=== PATIENT | male | born 1950 | race Caucasian/White ===

== ENCOUNTER → 2023-07-24 08:03 | Outpatient (REF) | payer MEDICARE, OTHER, SELFPAY | LOC: HWRCS 08:03 | PROVIDERS: ATTENDING PHYSICIAN Family Medicine | DX: I35.1 Nonrheumatic aortic (valve) insufficiency (principal) | CPT/HCPCS: 93306 ==

== ENCOUNTER → 2024-04-12 13:00 | Outpatient (REF) | payer MEDICARE, OTHER, SELFPAY | LOC: HWRAD 13:00 | PROVIDERS: ATTENDING PHYSICIAN Family Medicine | DX: R10.2 Pelvic and perineal pain (principal) | CPT/HCPCS: 74177; Q9967 ==

== ENCOUNTER 2025-01-09 04:42 | Inpatient (IN) | payer MEDICARE, OTHER, SELFPAY ==
[2025-01-08 22:20] VITALS: BP 133/80
[2025-01-08 22:42] LABS: Hematocrit 44.9 % (39.0-52.0); Hemoglobin 15.6 g/dL (13.0-18.0); Mean Corp Hgb Conc. 34.7 g/dL (33.0-37.0); Mean Corpuscular Volume 86.7 fL (80.0-94.0); Nucleated Red Blood Cells % 0 % (-); Platelet Count 225 10^3/uL (130-400); Red Cell Dist. Width 12.7 % (11.5-14.5)
[2025-01-08 22:51] LABS: INR 0.97; PT 13.4 Sec (11.4-14.6)
[2025-01-08 22:53] LABS: APTT 26.6 Sec (23.4-35.0)
[2025-01-08 22:58] LABS: ALT (SGPT) 21 U/L (0-50); AST (SGOT) 20 U/L (17-59); Albumin 4.4 g/dl (3.5-5.0); Alkaline Phosphatase 55 U/L (38-126); Blood Urea Nitrogen 20 mg/dl (9-20); Calcium 9.5 mg/dl (8.4-10.2); Carbon Dioxide 26 mmol/L (22-30); Chloride 107 mmol/L (98-107); Glucose 151 mg/dl (70-99); Potassium 4.0 mmol/L (3.5-5.1); Sodium 140 mmol/L (135-145); Total Protein 6.9 g/dl (6.3-8.2); eGFR 56.93
[2025-01-09] VITALS (14 sets, daily range): BP systolic 98–139; BP diastolic 57–91; PULSE 60–77; BMI 26.6; BMI 25.8
--- NOTE | 2025-01-09 01:42 | ED.GENMED ---
History of Present Illness
General
Chief Complaint: Rectal Bleeding
Source: patient
Exam Limitations: none
Time Seen by Provider: 01/09/25 01:14
Nursing documentation reviewed up to this point in time: agreed with
History of Present Illness
History of Present Illness:
74-year-old male presents with multiple episodes of bloody loose stools had [place] food with lewis this afternoon 4 hours later developed symptoms of nausea loose stools with blood had a colonoscopy 2 years ago said he had a polyp but no
diverticulosis takes aspirin no other blood thinners no fevers no abdominal pain no one else has been sick
Past History
Past History
ED Past Medical History: GERD, Hypercholesterolemia and Other (Sleep apnea uses CPAP)
ED Past Surgical History: Orthopedic (Left foot, Left wrist, Back surgery) and Tonsilectomy
Social History
Tobacco: Non-smoker
Alcohol: Daily (Wine or beer 1)
Drug: None
Personal:
Living: with family
Employment: Retired
Review of Systems
Review of Systems
All Other Systems: Not applicable
Constitutional: Reports fatigue; Denies fever
Respiratory: Reports no symptoms
ABD/GI: Reports nausea, diarrhea and bloody stools
: Reports no symptoms
Musculoskeletal: Reports no symptoms
Skin: Reports no symptoms
Neurological: Reports no symptoms
Endocrine: Reports no symptoms
Phy Exam
Physical Exam
Physical Exam:
Physical Exam
General: no apparent distress, not acutely ill
Neck: No jaundice
Heart: s1/s2 regular rate and rhythm, no murmur. equal radial pulses.
Lungs: no acute respiratory distress. clear bilaterally
Abdomen: Soft nontender rectal no masses no stool
Neuro: alert and oriented. no focal neurological deficits
Skin: no rash
Psychiatric: well kept. interactive and cooperative
Extremities: no edema.
Course
Orders/Labs/Results
Orders:
Orders
01/08/25 22:23
EKG [Electrocardiogram (*1)] Urgent
Reason for Study: Vertigo / Dizzy
01/08/25 22:24
EKG- Treatment ONCE
01/08/25 22:36
Type+Screen Urgent
Complete Blood Count/With Diff Urgent
Comprehensive Metabolic Panel Urgent
PTT Urgent
Prothrombin Time Urgent
01/08/25 22:51
ABO2 Urgent
BBK Wristband Number:
Associate notified that ABO2 has been ordered: [id number]
Date: 01/08/25
Time: 22:51
[place] Operator ID: [id number]
01/09/25 01:36
CT Abd/pelvis Angio W/wo Iv Urgent
Comment:
Reason For Exam: gi bleeding
IV Insert/Care/Rem.- Treatment PRN
Stool Culture Urgent
JAY Source: Feces/Stool
Specimen Description:
01/09/25 01:37
0.9% Sodium Chloride 500 ml [Nss] 500 ml IV BOLUS
Abnormal Lab Results
01/08/25
22:36
Absolute Monos (auto) 0.7 H 10^3/uL
(0.1-0.6)
Monocytes % 10.1 H %
(1.7-9.3)
Glucose 151 H mg/dl
(70-99)
01/08/25 22:36
01/08/25 22:36
Vital Signs
Initial and Last Documented VS:
Initial Vital Signs
Temp Pulse Resp BP Pulse Ox
98.1 F 79 16 133/80 97
01/08/25 22:20 01/08/25 22:20 01/08/25 22:20 01/08/25 22:20 01/08/25 22:20
Last Documented Vital Signs
Temp Pulse Resp BP Pulse Ox
98.1 F 69 17 139/91 95
01/08/25 22:20 01/09/25 00:45 01/09/25 00:45 01/09/25 00:15 01/09/25 01:44
MDM/Problems Addressed
Differential Diagnosis Includes:
Infectious colitis, ischemic colitis, tics, mass
MDM/Problems Addressed:
Rectal bleeding
*Radiology
Radiology exam reviewed: radiology read reviewed
*Pulse Oximetry
SaO2: 95
Oxygen Mode of Delivery: Room air
Patient hypoxic: no
*Critical Care Note
Total Time (30-74mins, 75-104mins- exclusive of procedures): Not Applicable
Update Note
Update Note:
315 update patient continues to have bloody stools will check stool studies,
ED Attending Note
-
Portions of this chart may have been created with voice recognition software.� Occasional wrong word or��sound alike� substitutions may have occurred due to the inherent limitations of voice recognition software.
Discharge Plan
Departure
Patient Disposition: Admit
Date of Disposition: 01/09/25
Time of Disposition: 03:14
Admit to: Med/Surg
Presentation/result/management discussed w/ accepting MD/DO: Hospitalist
Condition: Fair
Covid-19: Not Applicable
Discharge Problem:
Bloody stool
Prescriptions:
No Action
multivitamin [Daily Multiple] 1 EACH tablet
1 ea PO DAILY
aspirin 81 MG tablet,delayed release (DR/EC)
81 mg PO DAILY
rosuvastatin 10 MG tablet
10 mg PO DAILY
Calcium
600 mg PO DAILY
Vitamin C:
1 tab PO DAILY
meloxicam 15 mg Tablet
15 mg PO DAILY
tamsulosin 0.4 mg Capsule
0.4 mg PO DAILY
pantoprazole 40 mg Tablet,Delayed Release (Dr/Ec)
20 mg PO DAILY
gabapentin 300 mg Capsule
300 mg PO BID
magnesium 500 mg Tablet
500 mg PO DAILY
fluticasone propionate [Flonase] 50 mcg/actuation [place],Suspension
1 spray INTRANASAL 1XD
ezetimibe [Zetia] 10 mg Tablet
10 mg PO DAILY
Referrals:
Chris Henson DO [Family Provider, Family Practice]
Interventions
Interventions:
*Risk Screen - Suicide Last Done: 01/08/25 22:20
*General Assessment Last Done: 01/09/25 00:12
*Neglect/Abuse Screening Last Done: 01/08/25 22:20
*ED- Fall Risk Assessment Last Done: 01/08/25 22:20
*ED COVID-19 Vaccine History Last Done: 01/09/25 00:12
ZG-Qsbhwa-Yczdmgngdu Assessment Last Done: 01/09/25 00:12
ED- Cardiac Assessment Last Done: 01/09/25 00:12
ED- Pulmonary Assessment Last Done: 01/09/25 00:12
Discharge Date and Time
Print Language: SLOVAK
[2025-01-09] MEDS: NSS 500 IV (02:03)
--- NOTE | 2025-01-09 03:15 | HPS.HSE ---
Family Physician
-
Family Physician: Chris Henson
Chief Complaint
-
Rectal bleeding
History of Present Illness
This is a 74-year-old male with past medical history significant for GERD, hyperlipidemia, MARISOL on CPAP, history of chronic back pain on meloxicam and a prior DVT who presents to the emergency department with bloody stools.
He had multiple episodes of bloody loose stools after having [place] food with lewis this afternoon. 4 hours later developed symptoms of nausea loose stools with blood. Takes aspirin 81, meloxicam. Denies any other thinners. Last had a colonoscopy
2 years ago with a polyp but no diverticulosis.
Denies fevers, vomiting or abdominal pain. No recent travesl and no sick contacts.
In the emergency department patient was afebrile, blood pressures 130/90 with a pulse rate of 69 satting 98% on room air. INR was 0.9, ECG showed normal sinus rhythm at rate of 71. Hemoglobin was 15.6 with a normal platelet count. Electrolytes
were all within the normal range. BUN was 20 and creatinine 1.3 with a glucose of 151. CT abd. pelvis showing extensive diverticulosis without diverticulitis. No other abnormalities noted.
Medical History
Past Medical History
Past Medical History: Reports CAD (non-obstructive), GERD, Hypercholesterolemia and Other (BPH, h/o DVT, sleep apnea )
Past Surgical History: Reports Orthopedic
Social History
Tobacco: Non-smoker
Alcohol: None
Family History
Family History: Not pertinent
Allergies / Home Medications
Allergies reflects when Allergies were last updated in [employer].
Home Medications with original date entered in [employer]
Allergy/Medication List:
Allergies
Allergy/AdvReac Type Severity Reaction Status Date / Time
No Known Allergies Allergy Verified 01/08/25 22:16
Home Medications
Calcium 600 mg PO DAILY 08/26/13
Vitamin C: 1 tab PO DAILY 08/26/13
aspirin 81 mg tablet,delayed release 81 mg PO DAILY 08/26/13
multivitamin (Daily Multiple tablet) 1 ea PO DAILY 08/26/13
rosuvastatin 10 mg tablet 10 mg PO DAILY 08/26/13
gabapentin 300 mg capsule 300 mg PO BID 08/07/22
meloxicam 15 mg tablet 15 mg PO DAILY 08/07/22
pantoprazole 40 mg tablet,delayed release 20 mg PO DAILY 08/07/22
tamsulosin 0.4 mg capsule 0.4 mg PO DAILY 08/07/22
ezetimibe 10 mg tablet (Zetia) 10 mg PO DAILY 01/09/25
fluticasone propionate 50 mcg/actuation nasal spray,suspension 1 spray intranasal 1XD 01/09/25
magnesium 500 mg tablet 500 mg PO DAILY 01/09/25
Review of Systems
-
Constitutional: Reports No Symptoms
EENT: Reports No Symptoms
Respiratory: Reports No Symptoms
Cardiac: Reports No Symptoms
Abdomen/GI: Reports Bloody Stools
: Reports No Symptoms
Musculoskeletal: Reports No Symptoms
Skin: Reports No Symptoms
Neurological: Reports No Symptoms
Endocrine: Reports No Symptoms
Hematologic/Lymphatic: Reports No Symptoms
Psych: Reports No Symptoms
Physical Exam
Vital Signs
Vital Signs
Temp Pulse Resp BP Pulse Ox
98.1 F 69 17 139/91 95
01/08/25 22:20 01/09/25 00:45 01/09/25 00:45 01/09/25 00:15 01/09/25 01:44
Physical Exam
General: Well Developed, Well Nourished and No Apparent Distress
HEENT: NormoCephalic, Moist mucous membranes and Atraumatic
Respiratory: Clear
Cardiac: S1/S2 and Regular Rhythm; No Murmur or Rub
GI: Soft, Non Tender, Non Distended and Normal Bowel Sounds; No Organomegaly
Rectal: Red and Maroon Stools
Genito-urinary: Deferred by me
Musculoskeletal: No Clubbing, No Cyanosis and No Edema
Skin: No Rash
Neuro: AO x 3 and Nonfocal/grossly intact
Hematologic/Lymphatic: No Lymphadenopathy
Psych: Calm
Laboratory Results
-
01/08/25 22:36
01/08/25 22:36
Laboratory Results
PT 13.4 Sec (11.4-14.6) 01/08/25 22:36
INR 0.97 01/08/25 22:36
APTT 26.6 Sec (23.4-35.0) 01/08/25 22:36
Total Bilirubin 0.7 mg/dl (0.2-1.3) 01/08/25 22:36
AST 20 U/L (17-59) 01/08/25 22:36
ALT 21 U/L (0-50) 01/08/25 22:36
Alkaline Phosphatase 55 U/L (38-126) 01/08/25 22:36
Data Reviewed
-
CT Scan: Report Reviewed by me
Medical Tests (Nuc Med, Echo, EKG etc): Image Personally Visualized and interpreted
Lab Data: Labs Reviewed by me
Old Records: Reviewed
Impression/Plan
-
IMPRESSION:
This is a 74-year-old with past medical history of hyperlipidemia, GERD, BPH who is on baby aspirin and daily meloxicam presents to the emergency department with acute episode of rectal bleeding having had multiple bright red blood per rectum now
having more maroon-colored stool with clots. Patient had no abdominal pain. He had otherwise had no diarrhea fevers or chills. CT scan shows extensive diverticulosis without diverticulitis. No history of hemorrhoids. H&H is stable and he is
remains hemodynamically stable.
PLAN:
Rectal bleeding -suspect from diverticular source and no active bleeding seen on current CT GI bleed study
-Admit to telemetry
-N.p.o.
-Holding meloxicam and aspirin
-Type and screen, consent
-H&H every 6 to 8 hours
-Orthostatic vital signs
-PPI IV for now
-GI consultation
DVT prophylaxis�SCDs
CODE STATUS�full code
[2025-01-09] MEDS: D5/0.45%NACL 1000 IV ×2 (05:44→22:42)
[2025-01-09 06:15] LABS: Hematocrit 43.0 % (39.0-52.0); Hemoglobin 14.8 g/dL (13.0-18.0); Mean Corp Hgb Conc. 34.4 g/dL (33.0-37.0); Mean Corpuscular Volume 87.9 fL (80.0-94.0); Platelet Count 247 10^3/uL (130-400); Red Cell Dist. Width 12.7 % (11.5-14.5)
[2025-01-09 06:38] LABS: Blood Urea Nitrogen 20 mg/dl (9-20); Calcium 9.2 mg/dl (8.4-10.2); Carbon Dioxide 24 mmol/L (22-30); Chloride 106 mmol/L (98-107); Estimated Creatinine Clearance 55 ml/min; Glucose 112 mg/dl (70-99); Potassium 4.4 mmol/L (3.5-5.1); Sodium 138 mmol/L (135-145); eGFR > 60.00
--- NOTE | 2025-01-09 07:12 | CON.GI ---
Addendum entered and electronically signed by Debbie Haque MD 01/09/25 15:51:
I saw and examined the patient.
The QUALITY HEAD or PA's note was reviewed and I agree with the note.
Comment: 74-year-old male with history of hypertension, high cholesterol, chronic back pain on meloxicam presenting with multiple episodes of bloody bowel movements without any associated abdominal pain. He was doing well until dinner and had
[place] food around 4 PM, around 9 PM had an urge to have a bowel movement and felt like he was going to have diarrhea. He had multiple episodes of bloody bowel movements through the night, 6 or 7, last episode was 9:45 AM this morning and more
dark blood than before. No episodes since. No previous similar episode. No abdominal pain, nausea or vomiting. He takes pantoprazole 20 mg for history of GERD, well-controlled on that. No trouble swallowing. Normal bowel pattern is 2-3 formed
stool a day without any pushing or straining, good evacuation. Takes meloxicam and baby aspirin. Colonoscopy about a year ago with Dr. Lynne at [facility], 3 colon polyps removed as per patient and repeat suggested in 3 years. He has been having
colonoscopy since age 38 for family history of colon cancer in his mother. Never had polyps prior to the last year. No chest pain, dizziness, lightheadedness.
No significant drop in hemoglobin, no anemia. CT angiogram negative.
- Bloody bowel movements without any abdominal pain, CT angio negative
Most likely diverticular bleed which seems to be resolving at this time.
No further bleeding in the last 8 hours. Currently tolerating clear liquid diet.
If no bleeding overnight, okay to advance to full liquid diet tomorrow followed by low residue diet.
If there is bleeding, consider inpatient colonoscopy. If not, can follow-up with Dr. Lynne for outpatient colonoscopy in the next couple of months.
Avoid NSAIDs. Monitor bowel movements.
Will follow for now.
Original Note:
Consultation
-
Date/Time Consultation Requested: 01/09/25 0450
Date/Time Consultation Performed: 01/09/25 0800
Requesting Provider: Sergey Archibald MD
Performing Provider: MARKIE Villegas, Sonia Roldan DO
Reason for Consultation: rectal bleeding
Medical History
Chief Complaint / HPI
Chief Complaint: rectal bleeding
History of Present Illness:
Pt is a 74yo with hx CAD on daily ASA 81mg , GERD on daily Protonix 20mg,diverticulosis, colon polyp, hypercholesteremia, BPH, sleep apnea, cervical disc disease, VT, neuropathy, mild AI, MR, prior ortho surgery and chronic back pain on Meloxicam
with onset of bloody stools. In ER noted with hbg 15.[address] angio pending final report but preliminary no acute abnormality no active GI bleed-- extensive diverticulosis, no bowel obstruction, cholelithiasis. In review with patient
he admits to regular bowel function. He began 01/08 with onset of large volume of red stools. He has had about 6 episodes of bleeding in first 12 hours. Over time less volume and slightly darker color. Pt denies dizziness, or syncope. Hx EGD
recall normal and colonoscopy about 2 years ago with hx polyps,. Mother with family hx colon cancer. He otherwise admits to stable GERD on PPI and denies dysphagia, nausea, vomiting,abdominal pain, diarrhea, constipation or rectal bleeding in
past.
Past Medical History
Past Medical History: CAD, GERD, Hypercholesterolemia, Valvular Disease (mild MR, mild AI per echo 2023) and Other (BPH, sleep apnea, cervical disc disease, back pain, DVT, neuropathy)
Past Surgical History: Orthopedic (lami, wrist surgery, shoulder surgery) and Tonsilectomy
Social History
Tobacco: Non-Smoker
Alcohol: Occasional
Drug: None
Personal:
Living: With Family
Employment: Retired
Family History
Family History: Other (mother with colon Ca in 70's )
Allergies / Home Medications
Allergy/AdvReac Type Severity Reaction Status Date / Time
No Known Allergies Allergy Verified 01/09/25 04:55
�Medication �Instructions �Recorded
Calcium 600 mg PO DAILY 08/26/13
Vitamin C: 1 tab PO DAILY 08/26/13
aspirin 81 mg tablet,delayed 81 mg PO DAILY 08/26/13
release
multivitamin (Daily Multiple 1 ea PO DAILY 08/26/13
tablet)
rosuvastatin 10 mg tablet 10 mg PO DAILY 08/26/13
gabapentin 300 mg capsule 300 mg PO BID 08/07/22
meloxicam 15 mg tablet 15 mg PO DAILY 08/07/22
pantoprazole 40 mg tablet,delayed 20 mg PO DAILY 08/07/22
release
tamsulosin 0.4 mg capsule 0.4 mg PO DAILY 08/07/22
ezetimibe 10 mg tablet (Zetia) 10 mg PO DAILY 01/09/25
fluticasone propionate 50 1 spray intranasal 1XD 01/09/25
mcg/actuation nasal
spray,suspension
magnesium 500 mg tablet 500 mg PO DAILY 01/09/25
Review of Systems
-
History Source: Patient
Constitutional: Reports No Symptoms
EENT: Reports No Symptoms
Cardiac: Reports No Symptoms
Abdomen/GI: Reports Bloody Stools
: Reports No Symptoms
Musculoskeletal: Reports Joint Pain (chronic NSAID use )
Skin: Reports No Symptoms
Neurological: Reports No Symptoms
Endocrine: Reports No Symptoms
Hematologic/Lymphatic: Reports Bleeding
Vital Signs
Temp Pulse Resp BP Pulse Ox
98.1 F 61 19 121/73 94
01/08/25 22:20 01/09/25 06:15 01/09/25 06:15 01/09/25 06:00 01/09/25 06:15
Physical Exam
Exam
General: Well Developed and No Apparent Distress
HEENT: Normocephalic and Anicteric
Respiratory: Clear
Cardiac: Regular Rhythm
GI: Soft, Non Tender and Non Distended
Rectal: Other (bloody red per nursing staff )
Musculoskeletal: No Clubbing and No Cyanosis
Skin: Warm and Dry
Neuro: Awake, Alert and AO x 3
Psych: Calm
Results
WBC 7.4 10^3/uL (4.8-10.8) 01/09/25 05:48
Hgb 14.8 g/dL (13.0-18.0) 01/09/25 05:48
Hct 43.0 % (39.0-52.0) 01/09/25 05:48
MCV 87.9 fL (80.0-94.0) 01/09/25 05:48
Plt Count 247 10^3/uL (130-400) 01/09/25 05:48
Absolute Neuts (auto) 4.0 10^3/uL (1.4-6.5) 01/08/25 22:36
PT 13.4 Sec (11.4-14.6) 01/08/25 22:36
INR 0.97 01/08/25 22:36
APTT 26.6 Sec (23.4-35.0) 01/08/25 22:36
Sodium 138 mmol/L (135-145) 01/09/25 05:48
Potassium 4.4 mmol/L (3.5-5.1) 01/09/25 05:48
Chloride 106 mmol/L (98-107) 01/09/25 05:48
Carbon Dioxide 24 mmol/L (22-30) 01/09/25 05:48
BUN 20 mg/dl (9-20) 01/09/25 05:48
Creatinine 1.1 mg/dL (0.7-1.3) 01/09/25 05:48
Calcium 9.2 mg/dl (8.4-10.2) 01/09/25 05:48
Total Bilirubin 0.7 mg/dl (0.2-1.3) 01/08/25 22:36
AST 20 U/L (17-59) 01/08/25 22:36
ALT 21 U/L (0-50) 01/08/25 22:36
Alkaline Phosphatase 55 U/L (38-126) 01/08/25 22:36
Diagnostic Image Results:
01/09/24 CT angio pending-- preliminary no acute abnormality no activee GI bleed-- extensive diverticulosis, no bowel obstruction, cholelithiasis
Prior GI Procedures:
EGD: last 2 years ago recall stable [facility]
Colonoscopy: + polyps 2 years ago [facility]
Assessment / Plan
-
Pt is a 74yo with hx CAD on daily ASA 81mg , GERD on daily Protonix 20mg,diverticulosis, colon polyp, hypercholesteremia, BPH, sleep apnea, cervical disc disease, VT, neuropathy, mild AI, MR, prior ortho surgery and chronic back pain on Meloxicam
with onset of bloody stools. In ER noted with hbg 15.6 with normal BUN. In review with patient he admits to regular bowel function. He began 01/08 with onset of large volume of red stools. He has had about 6 episodes of bleeding in first 12
hours. Over time less volume and slightly darker color. Pt denies dizziness, or syncope. Hx EGD recall normal and colonoscopy about 2 years ago with hx polyps,. Mother with family hx colon cancer.
CT angio pending-- preliminary no acute abnormality no activee GI bleed-- extensive diverticulosis, no bowel obstruction, cholelithiasis
-painless rectal bleeding with bright red blood per rectum
-extensive diverticulosis
-chronic back pain on Meloxicam
-CAD on daily ASA 81mg
-GERD on chronic PPI
other med problems:
-hypercholesteremia
-BPH
-sleep apnea
- cervical disc disease
- DVT
-neuropathy
- mild AI, MR
-prior ortho surgery
-hx colon polyps
-cholelithiasis
-family hx colon Ca
PLAN:
etiology of bleeding likely diverticular bleeding -- less likely upper source with normal BUN and no dizziness but has been on Meloxicam daily with PPI prior to admission only one episode of mild hypotension in ER
trend hbg and stool pattern
CTA initial neg await final reading
if increased bleeding consider repeat CTA then angio if + vs proceed with colonoscopy
reviewed with patient if bleeding continues to improve hold intervention and continued observation
if no colonoscopy completed during admission then OP follow up with known GI for colonoscopy 6-8 weeks
ok for sips clears - advance as tolerated if bleeding improves to low residue
discussed high fiber diet in 3-4 weeks after bleeding improved
all questions answered
-
-
Thank you for consultation and allowing me to participate in the patient's care. Please call the nutrition aide GI physician during the after hours with any questions or concerns.
--- NOTE | 2025-01-09 08:24 | W.PN.HOSP.TC ---
Today's Communication/Plan
-
see A/P
Assessment / Plan
Assessment / Plan
HPI: 74-year-old M with past medical history of hyperlipidemia, GERD, BPH, MARISOL on CPAP, history of chronic back pain on meloxicam, on baby aspirin; p/w rectal bleeding and multiple bright red blood per rectum with clots. Patient denies to abdominal
pain.
His CT AP showed extensive diverticulosis without diverticulitis. No history of hemorrhoids. H&H is stable and he is remains hemodynamically stable.
A/P:
# GIB/Rectal bleeding, suspect from diverticular source
no active bleeding seen on CT AP, follow formal report
NPO with IVF for now until lifted by GI
GI CS
Holding [employer] meloxicam and aspirin
follow Hgb, so far stable with a small drop which could be explained by hemodilution
PPI IV BID for now
Other chronic medical conditions:
# hyperlipidemia
# GERD
# BPH
# MARISOL on CPAP
# history of chronic back pain on meloxicam
DVT prophylaxis�SCDs
CODE STATUS�full code
Anticipated Discharge: 24 - 48 hours
Subjective/Interval History
-
Date of Service: January 09, 2025
Objective Data
-
Labs:
Laboratory Results
01/08/25 01/09/25 01/09/25
22:36 05:48 14:00
WBC 6.6 7.4
Hgb 15.6 14.8 Pending
Hct 44.9 43.0 Pending
Plt Count 225 247
PT 13.4
INR 0.97
APTT 26.6
Sodium 140 138
Potassium 4.0 4.4
Chloride 107 106
Carbon Dioxide 26 24
BUN 20 20
Creatinine 1.3 1.1
Glucose 151 H 112 H
Calcium 9.5 9.2
Total Bilirubin 0.7
AST 20
ALT 21
Alkaline Phosphatase 55
Vital Signs:
Vital Signs
Temp Pulse Resp BP Pulse Ox
36.6 C 72 16 131/79 98
01/09/25 07:30 01/09/25 06:58 01/09/25 07:30 01/09/25 07:25 01/09/25 07:30
Review of Systems
-
History Source: Patient
Abdomen/GI: Reports Bloody Stools and Black Stools; Denies Abdominal Pain
Physical Exam
-
General: Well Developed, Well Nourished, No Apparent Distress, Comfortable and Conversant; Negative Respiratory Distress
HEENT: Normocephalic, Atraumatic, Nose Appears Normal and Ears Appear Normal; Negative Oxygen
Respiratory: Clear to Auscultation and Non Labored Respirations; Negative Accessory Resp Muscle Use
Cardiac: Regular Rhythm and S1/S2
GI: Soft, Nontender, Nondistended and Normal Bowel Sounds
Skin: Warm and Dry
Neuro: Awake, Alert, Oriented and AO x 3
Psych: Calm and Intact Judgement/Insight
Data Reviewed
-
Labs: Labs Reviewed by me
[2025-01-09] MEDS: FLOMAX 0.4 MG PO (08:40)
[2025-01-09] MEDS: NEURONTIN 300 MG PO ×2 (08:40→20:37)
[2025-01-09] MEDS: NSS (PRESERVATIVE FREE) 10 ML IV ×2 (08:40→20:38)
[2025-01-09] MEDS: PROTONIX IV 40 MG IV ×2 (08:40→20:38)
[2025-01-09] MEDS: CRESTOR 10 MG PO (08:43)
[2025-01-09] MEDS: ZETIA 10 MG PO (08:43)
--- NOTE | 2025-01-09 10:28 | CM ---
Patient seen at bedside in ED. Patient states that he lives with his in a 2 story home with an elevator. Patient has a CPAP machine at home that he uses. Patient stated that he uses the [facility] [address] in [place] and his PCP is Dr. Henson.
Patient plan is home with no needs vs home with VN. CM will continue to follow for discharge planning needs.
Plan; home with VN vs home with no needs. pending medical treatment plan
[2025-01-09 14:01] LABS: Hematocrit 43.5 % (39.0-52.0); Hemoglobin 14.8 g/dL (13.0-18.0)
[2025-01-10 03:00] VITALS: BP 119/54
--- NOTE | 2025-01-10 05:36 | W.PN.GI.CBS2 ---
Today's Communication / Plan
-
No further signs of recurrent bloody stools and Hgb remains stable, further supportive of likely resolved diverticular bleed. Recommend colonoscopy as outpatient with his primary GI. May ADAT. See rest as outlined below. GI will sign-off, please
recontact with any questions or concerns.
Assessment / Plan
-
#Hematochezia
This is a 74-year-old male with history of hypertension, high cholesterol, chronic back pain on meloxicam presenting with multiple episodes of bloody bowel movements without any associated abdominal pain. He was doing well until dinner and had
[place] food around 4 PM, around 9 PM had an urge to have a bowel movement and felt like he was going to have diarrhea. He had multiple episodes of bloody bowel movements through the night, 6 or 7, last episode was 9:45 AM this morning and more
dark blood than before. No episodes since. No previous similar episode. No abdominal pain, nausea or vomiting. He takes pantoprazole 20 mg for history of GERD, well-controlled on that. No trouble swallowing. Normal bowel pattern is 2-3 formed
stool a day without any pushing or straining, good evacuation. Takes meloxicam and baby aspirin. Colonoscopy about a year ago with Dr. Lynne at [facility], 3 colon polyps removed as per patient and repeat suggested in 3 years. He has been having
colonoscopy since age 38 for family history of colon cancer in his mother. Never had polyps prior to the last year. No chest pain, dizziness, lightheadedness.
No significant drop in hemoglobin, no anemia. CT angiogram negative.
-painless rectal bleeding with bright red blood per rectum
-extensive diverticulosis
-chronic back pain on Meloxicam
-CAD on daily ASA 81mg
-GERD on chronic PPI
Recommendations:
- No further bloody stools over past 24 hrs, further supportive of likely resolved diverticular bleed
- May ADAT to full liquids this AM and low-fiber, low-residue diet later today
- Trend Hgb with serial CBC
- No plans for an inpatient colonoscopy at this time, recommend close outpatient follow-up with his primary GI (Dr. Lynne and f/w Dr. Stapleton) with [facility] ([facility]) in the next few months
- Advised strict avoidance of NSAIDs
- Rest of care per primary team
Discussed with primary internal medicine team. GI will sign-off, please call with any questions or concerns.
Subjective
Subjective
Date of Service: January 10, 2025
- No acute events overnight, Hgb remains stable 15.6 -> 14.8 -> 14.8
Feeling well, resting comfortably in chair. Denies any further bloody bowel movements since yesterday AM. No abdominal pain or discomfort.
Objective
Data Reviewed
Laboratory Data:
Laboratory Results
PT 13.4 Sec (11.4-14.6) 01/08/25 22:36
INR 0.97 01/08/25 22:36
APTT 26.6 Sec (23.4-35.0) 01/08/25 22:36
Total Bilirubin 0.7 mg/dl (0.2-1.3) 01/08/25 22:36
AST 20 U/L (17-59) 01/08/25 22:36
ALT 21 U/L (0-50) 01/08/25 22:36
Alkaline Phosphatase 55 U/L (38-126) 01/08/25 22:36
Vital Signs and I&O:
Vital Signs
Temp Pulse Resp BP Pulse Ox
97.8 F 61 14 119/54 94
01/10/25 03:00 01/10/25 03:00 01/10/25 03:00 01/10/25 03:00 01/10/25 03:00
I&O
01/08/25 01/09/25 01/10/25
06:59 06:59 06:59
Intake Total 960 / 960
Balance 960 / 960
Physical Exam
Physical Exam
HEENT: Anicteric and Moist mucous membranes
Pulmonary: Other (Normal WOB on room air)
GI: Soft, Non Distended and Non Tender
Extremities: No Edema
Neuro: Non Focal
[2025-01-10 06:50] LABS: Hematocrit 40.0 % (39.0-52.0); Hemoglobin 13.7 g/dL (13.0-18.0); Mean Corp Hgb Conc. 34.3 g/dL (33.0-37.0); Mean Corpuscular Volume 88.1 fL (80.0-94.0); Platelet Count 206 10^3/uL (130-400); Red Cell Dist. Width 12.8 % (11.5-14.5)
[2025-01-10 07:19] LABS: Blood Urea Nitrogen 12 mg/dl (9-20); Calcium 8.7 mg/dl (8.4-10.2); Carbon Dioxide 25 mmol/L (22-30); Chloride 106 mmol/L (98-107); Estimated Creatinine Clearance 76 ml/min; Glucose 119 mg/dl (70-99); Magnesium 2.0 mg/dl (1.6-2.3); Potassium 4.2 mmol/L (3.5-5.1); Sodium 136 mmol/L (135-145); eGFR > 60.00
[2025-01-10 07:30] VITALS: BP 125/66
[2025-01-10] MEDS: CRESTOR 10 MG PO (08:08)
[2025-01-10] MEDS: NSS (PRESERVATIVE FREE) 10 ML IV (08:08)
[2025-01-10] MEDS: NEURONTIN 300 MG PO (08:08)
[2025-01-10] MEDS: ZETIA 10 MG PO (08:08)
[2025-01-10] MEDS: PROTONIX IV 40 MG IV (08:09)
[2025-01-10] MEDS: FLOMAX 0.4 MG PO (08:18)
[2025-01-10 11:50] VITALS: BP 123/77
--- NOTE | 2025-01-10 12:10 | CM ---
Addendum entered by Leeanne Frost 01/10/25 13:41:
Patient discharge today
IMM explained & signed. In chart
PLAN: Home, no needs
will transport
Original Note:
Patient seen at bedside with and daughter
discussed VN-does not feel he needs
PLAN: home, no needs when stable
family to transport
--- NOTE | 2025-01-10 12:57 | W.PN.HOSP.TC ---
Addendum entered and electronically signed by Radha Coulter MD 01/10/25 15:09:
Total DC time 35 minutes
Original Note:
Today's Communication/Plan
-
DC today after tolerating low residue diet
Assessment / Plan
Assessment / Plan
HPI: 74-year-old M with past medical history of hyperlipidemia, GERD, BPH, MARISOL on CPAP, history of chronic back pain on meloxicam, on baby aspirin; p/w rectal bleeding and multiple bright red blood per rectum with clots. Patient denies to abdominal
pain.
His CT AP showed extensive diverticulosis without diverticulitis. No history of hemorrhoids. H&H is stable and he is remains hemodynamically stable.
A/P:
# GIB/Rectal bleeding, suspect diverticular source , resolving
Hgb has been stable, mild drop could be explained by hemodilution
no active bleeding seen on CT AP
diet advanced to full liquid for lunch, and low residue for dinner
No plan for endoscopy per GI
Hold [employer] meloxicam, resume aspirin outpt
PPI IV BID for now
Other chronic medical conditions:
# hyperlipidemia
# GERD
# BPH
# MARISOL on CPAP
# history of chronic back pain on meloxicam
DVT prophylaxis�SCDs
CODE STATUS�full code
DW GI
Anticipated Discharge: Today
Subjective/Interval History
-
Date of Service: January 10, 2025
Objective Data
-
Labs:
Laboratory Results
01/10/25
06:25
WBC 6.8
Hgb 13.7
Hct 40.0
Plt Count 206
Sodium 136
Potassium 4.2
Chloride 106
Carbon Dioxide 25
BUN 12
Creatinine 0.8
Glucose 119 H
Calcium 8.7
Vital Signs:
Vital Signs
Temp Pulse Resp BP Pulse Ox
36.6 C 76 18 123/77 98
01/10/25 11:50 01/10/25 11:50 01/10/25 11:50 01/10/25 11:50 01/10/25 11:50
I&O
01/09/25 01/10/25 01/11/25
06:59 06:59 06:59
Intake Total 960 / 960 240 / 240
Balance 960 / 960 240 / 240
Review of Systems
-
History Source: Patient
Abdomen/GI: Denies Abdominal Pain, Bloody Stools or Black Stools
Physical Exam
-
General: Well Developed, Well Nourished, No Apparent Distress, Comfortable and Conversant; Negative Respiratory Distress
HEENT: Normocephalic, Atraumatic, Nose Appears Normal and Ears Appear Normal; Negative Oxygen
Respiratory: Clear to Auscultation and Non Labored Respirations; Negative Accessory Resp Muscle Use
Cardiac: Regular Rhythm and S1/S2
GI: Soft, Nontender, Nondistended and Normal Bowel Sounds
Skin: Warm and Dry
Neuro: Awake, Alert, Oriented and AO x 3
Psych: Calm and Intact Judgement/Insight
Data Reviewed
-
Labs: Labs Reviewed by me
[2025-01-10] MEDS: D5/0.45%NACL IV (13:15)
--- NOTE | 2025-01-10 15:04 | W.DCSUMMARY ---
Discharge Summary
Discharge Data
Date of Admission: 01/09/25
Date of Discharge: 01/10/25
-
Pending Results: No
Hospital Course
Principal Diagnosis:
GIB/Rectal bleeding, suspect diverticular source, resolving
Chronic Diagnoses:�
Hyperlipidemia
GERD
BPH
MARISOL on CPAP
History of chronic back pain. Discontinued meloxicam this admission.
Consultations:�
Gastroenterology
Procedures:�
None
Clinical course:�
This is a 74-year-old male with past medical history as stated above, who presented with rectal bleeding and significant bright red blood per rectum.
His CT AP showed extensive diverticulosis without diverticulitis.
Problem 1:
GIB/rectal bleeding, suspect diverticular source, resolving.
His Hgb has been stable (mild drop could be due to hemodilution from IVF).
Diet was slowly advanced to low residue which he tolerated well prior to discharge.
Per GI, since his GI bleed has much resolved, there is no plan for endoscopy during hospitalization.
His prior to admission meloxicam was discontinued.
As for the rest of his medical problems, they were stable during his hospital stay.
Discharge Plan
-
Patient Disposition: Home (Routine Discharge)
Discharge Diagnosis/Procedures: GI bleed/rectal bleed, suspect diverticular source, resolved
Condition: Good
Diet: As tolerated
Activity: As tolerated
Driving Restrictions: As prior to admission
Referrals:
Chris Henson, DO [Family Provider, Family Practice] - in less than 1 week
Prescriptions:
Continued
aspirin 81 MG tablet,delayed release (DR/EC)
81 mg PO DAILY
calcium carbonate 500 mg calcium (1,250 mg) Tablet
500 mg PO DAILY
ascorbic acid (vitamin C) [Vitamin C] 500 mg Tablet
500 mg PO DAILY
rosuvastatin 10 MG tablet
10 mg PO HS
tamsulosin 0.4 mg Capsule
0.4 mg PO QPM
gabapentin 300 mg Capsule
300 mg PO BID
fluticasone propionate 50 mcg/actuation [place],Suspension
1 spray INTRANASAL 1XD
ezetimibe [Zetia] 10 mg Tablet
10 mg PO DAILY
therapeutic multivitamin Tablet
1 tab PO DAILY
pantoprazole [Protonix] 20 mg Tablet,Delayed Release (Dr/Ec)
20 mg PO DAILY
potassium 99 mg Tablet
99 mg PO DAILY
Discontinued
meloxicam 15 mg Tablet
15 mg PO DAILY
Discharge Orders:
Discharge Patient (As Directed); Ordered 01/10/25
Ordered By: Radha Coulter
Discharge Date and Time
Print Language: KOREAN
[2025-01-10 15:30] VITALS: BP 112/66
== END 2025-01-10 17:40 | disposition home or self-care (01) | DRG 379 ==
LOC: 3 WEST ACU 04:42
PROVIDERS: Student in an Organized Health Care Education/Training Program; ADMITTING PHYSICIAN Internal Medicine; ATTENDING PHYSICIAN Internal Medicine; CONSULT PHYSICIAN Internal Medicine; EMERGENCY PHYSICIAN Emergency Medicine; FAMILY PHYSICIAN Family Medicine
DX: K57.93 Diverticulitis of intestine, part unspecified, without perforation or abscess with bleeding (principal); I10 Essential (primary) hypertension; E78.00 Pure hypercholesterolemia, unspecified; I25.10 Atherosclerotic heart disease of native coronary artery without angina pectoris; K21.9 Gastro-esophageal reflux disease without esophagitis; N40.0 Benign prostatic hyperplasia without lower urinary tract symptoms; M50.90 Cervical disc disorder, unspecified, unspecified cervical region; G62.9 Polyneuropathy, unspecified; K80.20 Calculus of gallbladder without cholecystitis without obstruction; G89.29 Other chronic pain; G47.33 Obstructive sleep apnea (adult) (pediatric); Z79.82 Long term (current) use of aspirin; Z80.0 Family history of malignant neoplasm of digestive organs; Z86.0100 Personal history of colon polyps, unspecified; Z86.718 Personal history of other venous thrombosis and embolism
CPT/HCPCS: 74174; 80048; 80053; 83735; 85014; 85018; 85025; 85027; 85610; 85730; 86850; 86900; 86901; 87045; 87046; 87077; 87427; 93005; 96365; 96366; 99285; Q9967